=== PATIENT | male | born 1995 | race Caucasian/White ===

== ENCOUNTER 2016-11-03 10:29 | Emergency (ER) | payer SELFPAY ==
[~2016-11-03 10:29] MED LIST: Sodium Chloride 0.9% 1,000 ML BAG ONE
[2016-11-03] MEDS ORDERED: Ondansetron HCl/PF 4 MG/2 ML Vial ONE (10:41)
[2016-11-03] MEDS ORDERED: Ketorolac Tromethamine 30 MG/ML VIAL ONE (10:41)
[2016-11-03 10:52] LABS: #Basophils 0.1 thou/uL (0.0-0.2); #Eosinphils 0.2 thou/uL (0.0-0.7); #Lymphocytes 1.9 thou/uL (1.20-3.40); #Monocytes 0.6 thou/uL (0.11-0.59); #Neutrophils 4.9 thou/uL (1.40-6.50); %Basophils 0.9 % (0.0-1.0); %Eosinophils 2.5 % (0.0-10.0); %Lymphocytes 24.8 % (21.0-51.0); %Monocytes 7.3 % (0.0-10.0); %Neutrophils 64.5 % (42.0-75.0); Hemoglobin 15.7 g/dL (14.0-18.0); Mean Corpuscular HGB CONC 33.8 g/dL (32.0-36.0); Mean Corpuscular Hemoglobin 30.4 pg (27.0-31.0); Mean Corpuscular Volume 89.9 fl (80.0-94.0); Platelet Count 256 thou/uL (130-400); RBC Distribution Width 11.1 % (11.5-14.5); Red Blood Cell (RBC) Count 5.17 mill/uL (4.70-6.10); White Blood Cell (WBC) Count 7.6 thou/uL (4.8-10.8)
[2016-11-03 11:06] LABS: Bilirubin Negative (Negative); Blood, Urine Moderate (Negative); Glucose, Urine (Dipstick) Negative (Negative); Leukocyte Negative (Negative); Nitrite Negative (Negative); Protein, Urine (Dipstick) 30 mg/dL (Neg-Trace); Urobilinogen 0.2 mg/dL (0.2-1.0); pH, Urine 8.5 (5.0-9.0)
[2016-11-03 11:07] LABS: Bacteria/HPF None Seen HPF (None Seen); Clarity Cloudy (Clear); Crystals/HPF 2+ AMORPH PHOS HPF (Negative); Squamous Epithelial 0-3 HPF (0-3); WBC/HPF 0-3 HPF (0-3)
[2016-11-03 11:08] LABS: ALT (SGPT) 36 U/L (0-55); AST (SGOT) 25 U/L (5-34); Albumin 4.5 g/dL (3.5-5.0); Alkaline Phosphatase 93 U/L (40-150); Anion Gap 17 mmol/L (10-20); BUN (Urea Nitrogen) 11 mg/dL (8.9-20.6); Bilirubin, Total 0.7 mg/dL (0.2-1.2); Calc. Creatinine Clearance 0 mL/min (70-130); Calcium 9.8 mg/dL (7.8-10.44); Carbon Dioxide 23 mmol/L (22-29); Chloride 105 mmol/L (98-107); Estimated GFR-MDRD Greater than 90; Globulin 3.1 g/dL (2.4-3.5); Glucose 105 mg/dL (70-105); Lipase 18 U/L (8-78); Potassium 3.6 mmol/L (3.5-5.1); Protein, Total 7.6 g/dL (6.0-8.3); Sodium 141 mmol/L (136-145)
--- NOTE | 2016-11-03 11:25 | CT ---
ABDOMEN AND PELVIC CT SCAN WITHOUT IV CONTRAST: History: 21-year-old male with abdominal pain. FINDINGS: Lung bases are clear. Mild or borderline fatty changes in the liver. Gallbladder, pancreas, spleen , adrenal glands are unremarkable as evaluated without IV contrast. Mild dilatation of the right upper renal collecting system and right ureter down to the level of the bladder with a 0.4 cm diameter calculus within the right side of the bladder. No renal calculus or left sided obstruction. Normal appearing appendix. No adenopathy, abscess, or significant abno rmal fluid collection. IMPRESSION: 0.4 cm diameter calculus within the right side of the bladder with mild residual dilatation of the r ight upper renal collecting system. No renal calculi. Normal appearing appendix. POS: SANTY
== END 2016-11-03 11:51 | disposition home or self-care (01) ==
LOC: MADERS 10:29
DX: N13.2 Hydronephrosis with renal and ureteral calculous obstruction (principal)
CPT/HCPCS: 74176; 80053; 81003; 81015; 83690; 85025; 96361; 96374; 96375; J1885; J2270; J2405; J7050

== ENCOUNTER 2016-12-12 12:21 | Emergency (ER) | payer SELFPAY ==
[2016-12-12] MEDS ORDERED: Benzonatate 100 MG CAP ONE (12:55)
[2016-12-12] MEDS ORDERED: Azithromycin 250 MG TAB ONE (12:55)
== END 2016-12-12 13:04 | disposition home or self-care (01) ==
LOC: MADERS 12:21
DX: J02.9 Acute pharyngitis, unspecified (principal)
CPT/HCPCS: 99283

== ENCOUNTER 2017-02-01 18:36 | Emergency (ER) | payer SELFPAY ==
[2017-02-01 19:06] LABS: Clarity Hazy (Clear); Specific Gravity, Urine 1.025 (1.005-1.030)
[2017-02-01 19:07] LABS: Bacteria/HPF Rare-Few HPF (None Seen); Bilirubin Negative (Negative); Blood, Urine Small (Negative); Glucose, Urine (Dipstick) Negative (Negative); Leukocyte Negative (Negative); Nitrite Negative (Negative); Protein, Urine (Dipstick) Negative (Neg-Trace); RBC/HPF 0-3 HPF (0-3); Urobilinogen 0.2 mg/dL (0.2-1.0); WBC/HPF 0-3 HPF (0-3)
[2017-02-01] MEDS ORDERED: HYDROcodone/Acetaminophen 5/325 mg Tablet ONE (19:12)
[2017-02-01] MEDS ORDERED: diphenhydrAMINE HCl 25 MG CAP ONE (19:13)
[2017-02-01] MEDS ORDERED: Ketorolac Tromethamine 60 MG/2 ML VIAL ONE (19:13)
[2017-02-01] MEDS ORDERED: Metoclopramide HCl 10 MG TAB ONE (19:13)
== END 2017-02-01 19:40 | disposition home or self-care (01) ==
LOC: MADERS 18:36
DX: G43.909 Migraine, unspecified, not intractable, without status migrainosus (principal); N20.0 Calculus of kidney
CPT/HCPCS: 81003; 81015; 87086; 96372; J1885

== ENCOUNTER 2017-07-26 16:24 | Emergency (ER) | payer SELFPAY ==
--- NOTE | 2017-07-26 17:32 | RAD ---
LEFT FOOT THREE VIEWS 07/26/17 HISTORY: Left foot pain. FINDINGS/IMPRESSION: No fracture, dislocation or bony destruction is seen. There is suggestion of a small posterior calcan eal spur. POS: MILANA
== END 2017-07-26 17:00 | disposition home or self-care (01) ==
LOC: MADERS 16:24
DX: S93.602A Unspecified sprain of left foot, initial encounter (principal); X50.9XXA Other and unspecified overexertion or strenuous movements or postures, initial encounter

== ENCOUNTER 2017-12-05 18:07 | Emergency (ER) | payer SELFPAY ==
[2017-12-05] MEDS ORDERED: Ondansetron ODT 4 MG TAB ONE (18:43)
[2017-12-05] MEDS ORDERED: diphenhydrAMINE 50 MG/ML VIAL ONE (18:43)
[2017-12-05] MEDS ORDERED: Acetaminophen 500 MG TAB ONE (18:43)
[2017-12-05] MEDS ORDERED: Metoclopramide HCl 10 MG/2 ML VIAL ONE (18:43)
[2017-12-05] MEDS ORDERED: traMADol HCl 50 MG TAB ONE (18:43)
== END 2017-12-05 18:55 | disposition home or self-care (01) ==
LOC: MADERS 18:07
DX: R51 Headache (principal)
CPT/HCPCS: 96372; J1200; J2765; Q0162